=== PATIENT | male | born 1995 | race Two or more races ===

== ENCOUNTER 2021-06-05 09:01 | Emergency (ER) | payer OTHER, SELFPAY ==
[2021-06-05 09:42] VITALS: PULSE 67; RESP 18; TEMP 36.6; O2SAT 100; BMI 24.5
--- NOTE | 2021-06-05 09:45 | ED.ALLEREA ---
HPI - Allergic Reaction General Chief complaint: Allergic Reaction Stated complaint: Rash Allergic Reaction Time Seen by Provider: 06/05/21 09:45 Source: patient Mode of arrival: ambulatory Limitations: no limitations History of Present Illness MD complaint: hives Onset (ago): day(s) (last night) Exposure: food (started after clam pizza) Symptoms: rash and itching Severity: moderate Treatment prior to arrival: other (tried zyrtec) Previous Allergic Reaction History: none Related Data Previous Rx's Medication Instructions Recorded famotidine [Pepcid] 20 mg PO DAILY #10 tab 06/05/21 prednisone 40 mg PO DAILY 4 Days #8 tab 06/05/21 Allergies Allergy/AdvReac Type Severity Reaction Status Date / Time No Known Allergies Allergy Verified 06/05/21 09:45 Review of Systems Review of Systems: Constitutional : No Fever, No Chills ENT/Mouth : no oral swelling, No Hoarseness, No Swallowing Difficulty Eyes: No Eye Pain, No Swelling, No Redness Cardiovascular : No Chest Pain, No SOB Respiratory : No Cough, No Sputum, No Wheezing, No Smoke Exposure, No Dyspnea Gastrointestinal : No Nausea, No Vomiting, No Diarrhea, No abdominal Pain Genitourinary : No Dysuria, No Urinary Frequency, No Hematuria Musculoskeletal : No joint pain, No Myalgias, No Joint Swelling Skin : No Skin Lesions, positive rash Neuro : No Weakness, No Numbness, No Headache Psych : No Anxiety/Panic, No Depression Heme/Lymph: No Bruising, No Lymphadenopathy Endocrine : No Polyuria, No Polydipsia All other systems reviewed and are negative [facility] Past Medical History Medical History Seasonal allergies Social History Social History (Updated 06/05/21 @ 10:05 by Fina Carrera DO) Alcohol intake: never Patient Tobacco Use Status: Never used Tobacco Advance Directives: Yes Advance Directives Information Provided: Yes Advance Directives on File: No Physical Exam Vital Signs: Vital Signs: Last Vital Signs Temp 98 F 06/05/21 09:42 Pulse 67 06/05/21 09:42 Resp 18 06/05/21 09:42 Pulse Ox 100 06/05/21 09:42 Body Mass Index 24.5 Appearance: Alert. Oriented X3. No acute distress. Eyes: Pupils equal, round and reactive to light. ENT: Pharynx normal. Neck: Normal inspection. Neck supple. CVS: Normal heart rate and rhythm. Pulses normal. Respiratory: No respiratory distress. Breath sounds normal. Abdomen: Soft and non-tender. Skin: Skin warm and dry. Normal skin color. Normal skin turgor. hives noted on L trunk, upper chest, scant on back and R forearm - mild Extremities: No lower extremity edema. No calf ttp Neuro: Oriented X 3. No motor deficit. No sensory deficit. MDM - Allergic Reaction MDM Narrative Medical decision making narrative: 25 yo male with exposure to clams which is new has hives but not extensive - no oral swelling, no resp issues, will give oral pepcid/benadryl/steroids - anticipate DC home after improvement with medications Discharge Plan Discharge Clinical Impression: Allergic reaction, Urticaria Patient Disposition: Home, Self-Care Instructions: General Allergic Reaction (ED) Additional Instructions: return to ED for any worsening symptoms or concerns AVOID CLAMS AND OTHER SHELLFISH AT THIS TIME TAKE BENADRYL 25MG EVERY 6 HOURS NEEDED FOR ITCHING START PREDNISONE TOMORROW 06/06/21 Prescriptions: New famotidine [Pepcid] 20 mg tablet 20 mg PO DAILY Qty: 10 RF: 0 prednisone 20 mg tablet 40 mg PO DAILY 4 Days Qty: 8 RF: 0
[2021-06-05] MEDS: predniSONE 20 MG TABLET 60 MG PO (10:26)
[2021-06-05] MEDS: diphenhydrAMINE HCL 25 MG TABLET PO (10:26)
[2021-06-05] MEDS: Famotidine 20 MG TABLET PO (10:26)
== END 2021-06-05 10:43 | disposition home or self-care (01) ==
PROVIDERS: Emergency Provider Emergency Medicine
DX: T78.1XXA Other adverse food reactions, not elsewhere classified, initial encounter (principal); L50.9 Urticaria, unspecified; X58.XXXA Exposure to other specified factors, initial encounter
CPT/HCPCS: 99283; Q0163

== ENCOUNTER 2021-07-04 18:44 | Emergency (ER) | payer OTHER, SELFPAY ==
--- NOTE | ~2021-07-04 | XR_ITS ---
EXAMINATION: XR CHEST CLINICAL INFORMATION: Cough COMPARISON: None TECHNIQUE: Frontal view of the chest was obtained. FINDINGS: The lungs are well expanded. There is no focal consolidation, edema, or effusion. No pneumothorax. The cardiomediastinal silhouette is within normal limits. No acute osseous abnormality. XR/XR chest 1V IMPRESSION: Clear lungs
[2021-07-04 19:01] VITALS: BP 104/48; PULSE 81; RESP 16; TEMP 37.1; O2SAT 100; BMI 23.4
[2021-07-04 19:39] LABS: COVID-19 Test Negative (Negative)
--- NOTE | 2021-07-04 20:14 | ED.URI ---
HPI - URI/Sore Throat General Chief Complaint: Upper Respiratory Symptoms Stated Complaint: Sinus issue Time Seen by Provider: 07/04/21 20:05 Source: patient Mode of arrival: ambulatory Limitations: no limitations History of Present Illness HPI Narrative: Patient is a 26-year-old male no significant past medical history who is here complaining of 4 days of runny nose, sinus pain, blocked ears and a productive cough with yellow phlegm. He denies fever, shortness of breath, difficulty breathing, chest pain, headaches. States he has both COVID vaccinations back in May 2020, [employer]. He states he has been eating and drinking normally. Related Data Previous Rx's Medication Instructions Recorded famotidine 20 mg tablet (Pepcid) 20 mg PO DAILY #10 tab 06/05/21 prednisone 20 mg tablet 40 mg PO DAILY 4 Days #8 tab 06/05/21 Allergies Allergy/AdvReac Type Severity Reaction Status Date / Time No Known Allergies Allergy Verified 06/05/21 09:45 Review of Systems Review of Systems: Yes all other systems are reviewed and are negative PMFSH Past Medical History Medical History Seasonal allergies Social History Social History Alcohol intake: never Patient Tobacco Use Status: Never used Tobacco Advance Directives: No Physical Exam Vital Signs: Vital Signs: Last Vital Signs Temp 98.8 F 07/04/21 19:01 Pulse 81 07/04/21 19:01 Resp 16 07/04/21 19:01 BP 104/48 L 07/04/21 19:01 Pulse Ox 100 07/04/21 19:01 Body Mass Index 23.4 Const: General: cooperative Orientation/consciousness: patient oriented x3 Limitations: no limitations HENMT: Head: Yes normal to inspection Ears: hearing grossly normal bilaterally, external ears normal, TM's normal bilaterally and Abnormal EAC present excessive cerumen on the left Eyes: General: appearance normal, both eyes and all related structures Neck: Neck: Yes normal visual inspection and Yes full ROM Resp: Effort & Inspection: normal respiratory effort and able to speak in complete sentences Auscultation: clear to auscultation bilaterally Cardio: Rate: regular rate Rhythm: regular rhythm Heart sounds: normal S1 and S2 GI: Inspection: Yes normal to inspection Skin: General skin exam: no rashes or lesions noted Neuro: General: patient oriented x3 Extrem: General: Yes normal to inspection MDM - URI/Sore Throat Lab Data Attestation: I reviewed the patient's lab results. Labs: Lab Results 07/04/21 Range/Units 19:07 COVID-19 (ANDREW) Negative (Negative) COVID-19 Clin Com See Note Imaging Data Chest x-ray: Attestation: I personally reviewed and interpreted this imaging study as follows: Radiologist's impression: [address] [address] XRay Report Signed Patient: Moses Kelley MR#: [id number] : 1995 Acct:[id number] Age/Sex: 26 / M ADM Date: 07/04/21 Loc: .ED Attending Dr: Ordering Physician: Generic ED Physician Date of Service: 07/04/21 Procedure(s): XR chest 1V Accession Number(s): [id number] cc: Generic ED Physician~ EXAMINATION: XR CHEST CLINICAL INFORMATION: Cough COMPARISON: None TECHNIQUE: Frontal view of the chest was obtained. FINDINGS: The lungs are well expanded. There is no focal consolidation, edema, or effusion. No pneumothorax. The cardiomediastinal silhouette is within normal limits. No acute osseous abnormality. XR/XR chest 1V IMPRESSION: Clear lungs ? Dictated By: Jason Rodriguez MD Signed By: <Electronically signed by Jason Rodriguez MD in OV> 07/04/211920 DD/ 12 TD/TT:? [employer] [employer]: Discharge Plan Discharge Clinical Impression: Sinusitis, acute Qualifiers: Sinusitis location: frontal Recurrence: non-recurrent Qualified Code(s): J01.10 - Acute frontal sinusitis, unspecified Patient Disposition: Home, Self-Care Instructions: Sinusitis (ED) Additional Instructions: As discussed, you may use a Neti pot to flush out your sinuses, after this, you may use Flonase, 1 spray in each nostril. If you do this before bed, it will make it easier for you to breathe during the night. You also should treat your symptoms as they occur, Tylenol for fever and acetaminophen for pain. If you have chest pain or shortness of breath or difficulty breathing, please return to the emergency department or call 911. Prescriptions: No Action famotidine [Pepcid] 20 mg tablet 20 mg PO DAILY Qty: 10 RF: 0 prednisone 20 mg tablet 40 mg PO DAILY 4 Days Qty: 8 RF: 0
== END 2021-07-04 20:18 | disposition home or self-care (01) ==
PROVIDERS: Emergency Provider Emergency Medicine Emergency Medical Services
DX: J01.10 Acute frontal sinusitis, unspecified (principal); Z20.822 Contact with and (suspected) exposure to COVID-19
CPT/HCPCS: 36415; 71045; 87635; 99283

== ENCOUNTER 2023-05-21 20:19 | Emergency (ER) | payer OTHER, SELFPAY ==
--- NOTE | ~2023-05-21 | CT_ITS ---
EXAMINATION: CT HEAD WITHOUT CONTRAST CLINICAL INFORMATION: Left-sided head pain COMPARISON: None available. TECHNIQUE: Contiguous axial imaging was performed from the skull base to vertex without intravenous administration of contrast. This CT examination was performed using dose optimization techniques as appropriate, variously including the following: *Automated exposure control *Adjustment of mA and/or kV according to patient size (this includes techniques or standardized protocols for targeted exams where dose is matched to indication/reason for exam; i.e. extremities or head) *Use of iterative reconstruction technique DLP: 589 mGy-cm FINDINGS: There is no acute intra-axial, extra-axial bleed, masses or midline shift. No acute infarction in evolution. There is no edema. The raymond to white matter differentiation is maintained normal. The lateral ventricles are symmetrical in size and configuration without enlargement. Bone windows reveal no calvarial abnormality. There is no scalp soft tissue abnormality. Bilateral mastoid sinuses and paranasal sinuses are well-aerated. CT/CT head/brain wo IV con IMPRESSION: No acute intracranial process seen.
--- NOTE | 2023-05-21 20:38 | ED.SKABFB ---
HPI - Skin/Abscess/Foreign Bdy General Chief complaint: Skin/Abscess/Foreign Body Stated complaint: cyst on the back of head Time Seen by Provider: 05/21/23 21:35 History of Present Illness HPI narrative: 27 yo male presents to the ER with left sided pain on the back of his head. He states that it comes and goes and is triggered by stress. He reports that he felt pain after he went to the gym. He states that he feels a lump and states that the pain is undescribable. Location: head Severity: mild Pain Consistency: intermittent Relieving factors: none Exacerbating factors: none Context: none Associated symptoms: denies other symptoms Treatments prior to arrival: none Related Data Previous Rx's Medication Instructions Recorded famotidine 20 mg tablet (Pepcid) 20 mg PO DAILY #10 tabs 06/05/21 prednisone 20 mg tablet 40 mg PO DAILY 4 days #8 tabs 06/05/21 Allergies Allergy/AdvReac Type Severity Reaction Status Date / Time No Known Allergies Allergy Verified 05/21/23 20:45 Review of Systems Review of Systems: Yes all other systems are reviewed and are negative [facility] Past Medical History Medical History Seasonal allergies Social History Social History Alcohol intake: never Patient Tobacco Use Status: Never used Tobacco Advance Directives: No Advance Directives Information Provided: Yes Physical Exam Vital Signs: Vital Signs: Last Vital Signs Temp 98.4 F 05/21/23 20:39 Pulse 62 05/21/23 22:14 Resp 18 05/21/23 22:14 BP 108/66 05/21/23 22:14 Pulse Ox 99 05/21/23 22:14 O2 Del Method Room Air 05/21/23 22:14 BMI result Body Mass Index 24.9 Appearance: Alert. Oriented X3. No acute distress. Head: normocephalic, atraumatic. Eyes: Pupils equal, round and reactive to light. ENT: Pharynx normal. No tonsillar swelling or exudate. Neck: Normal inspection. Neck supple. CVS: Normal heart rate and rhythm. Pulses normal. Respiratory: No respiratory distress. Breath sounds normal. Abdomen: Soft and nontender. +BS x4 Skin: Skin warm and dry. Normal skin color. Normal skin turgor. No rashes. Extremities: No lower extremity edema. No joint swelling. Neuro/psych: Oriented X 3. No motor deficit. No sensory deficit. CN II-XII intact. Normal speech and cognition. Course Course Course Narrative: RME: 27yo M w/no sig PMHx c/o intermittent L posterior scalp pain x 3 years worsening x 2 days. Denies pain at present, however states went to the gym today and then developed pain. States pain worse w/brushing hair. Admits to assoc blurry vision w/ pain. denies N/V, fever No focal deficits, small scalp ?cyst noted, no induration/erythema or fluctuance. no step off Labs including ESR/CRP ordered Full HPI, ROS and PE to be performed by primary ED provider. Medical Decision Making Medical Decision Making [facility] Narrative: 27 yo male presents to the ER with left sided pain on the back of his head. He states that it comes and goes and is triggered by stress. Physical exam was unremarkable with no abnormalities, lesions, or lump on the left back of the skull. Labs are normal. CT of the head was ordered. Differential Diagnosis Differential Diagnoses: The differential diagnosis associated with the presentation includes migraine headache, cluster headache, anxiety reaction, tension headache, doubt aneurysm or SAH given chronicity Lab Data [facility] Lab Attestation statement: I reviewed the patient's lab results. mild anemia, otherwise unremarkable. 05/21/23 20:59 05/21/23 20:59 Labs: Lab Results 05/21/23 05/21/23 05/21/23 Range/Units 20:59 20:59 20:59 WBC 4.8 (4.8-10.8) X10*3/uL RBC 4.22 L (4.60-5.80) X10*6/uL Hgb 13.1 L (14.0-18.0) g/dl Hct 37.3 L (42.0-52.0) % MCV 88.4 (80.0-98.0) fL MCH 31.0 (27.0-33.0) pg MCHC 35.1 (31.0-36.0) g/dl RDW 12.3 (11.0-16.0) % Plt Count 171 (160-400) X10*3/uL MPV 12.1 (9.4-12.4) fL Immature Gran % (Auto) 0.2 (0.0-0.4) % Neut % (Auto) 46.4 (45-73) % Lymph % (Auto) 37.8 (20-40) % [place] % (Auto) 12.0 H (2-11) % Eos % (Auto) 2.5 (0-4) % Baso % (Auto) 1.1 (0-2) % Lymph # (Auto) 1.8 (1.2-4.9) X10*3/uL [place] # (Auto) 0.6 (0.1-1.2) X10*3/uL Eos # (Auto) 0.1 (0.0-0.4) X10*3/uL Baso # (Auto) 0.1 (0.0-0.2) X10*3/uL Abs Immat Gran (auto) 0.01 (0.00-0.03) X10*3/uL Absolute Neuts (auto) 2.2 (2.0-8.3) x10*3/uL Absolute Nucleated RBC 0.000 (0.0-0.012) X10*3/uL Nucleated RBC % (auto) 0.0 (0.0-0.2) /100WBC ESR 7 (0-15) MM/HR Sodium 140 (135-145) mmol/L Potassium 3.8 (3.3-5.1) mmol/L Chloride 105 (96-108) mmol/L Carbon Dioxide 26 (22-29) mmol/L Anion Gap 13 (12-20) BUN 21 H (9-16) mg/dL Creatinine 1.07 (0.5-1.4) mg/dL Estim Creat Clear Calc 95.2 Estimated GFR > 60 Random Glucose 85 (60-115) mg/dL Calcium 9.8 (8.4-10.2) mg/dL Total Bilirubin 0.5 (0.0-1.0) mg/dL Direct Bilirubin 0.2 (0.0-0.5) mg/dL AST 29 (5-37) U/L ALT 20 (0-40) U/L Alkaline Phosphatase 49 (39-117) U/L C-Reactive Protein 0.23 (< or = 0.50) mg/dL Total Protein 7.3 (6.5-8.0) g/dL Albumin 4.4 (3.5-5.0) g/dL Independent Interpretation I performed an independent interpretation of an: CT Scan Interpretation: ct reviewed- no acute edema or bleed, agree w/ radiology read Radiology Impression Discussion of test interpretation with radiology: I have reviewed the radiologist's reading. Radiologist Impression: CT/CT head/brain wo IV con IMPRESSION: No acute intracranial process seen.? External Record Review External record reviewed: Outpatient record and Prior outpatient labs Prescription Management I considered prescription management with: Pain Medication Critical Care Time Critical Care Time Critical Care Time: No Discharge Plan Discharge Clinical Impression: Chronic head pain Patient Disposition: Home, Self-Care Instructions: General Headache (ED) Additional Instructions: Your vital signs, lab workup were normal. CT scan was normal. Recommend following up with your primary care doctor and Neurology for further evaluation. Prescriptions: No Action famotidine [Pepcid] 20 mg tablet 20 mg PO DAILY Qty: 10 0RF prednisone 20 mg tablet 40 mg PO DAILY 4 Days Qty: 8 0RF Referrals: [facility] [place] Neuro/Sleep [Provider Group]
[2023-05-21 20:39] VITALS: BP 115/48; PULSE 77; RESP 18; TEMP 36.9; O2SAT 100; BMI 24.9
[2023-05-21 21:07] LABS: MANUAL DIFF FLAG NO
[2023-05-21 21:09] LABS: Basophils Absolute Auto 0.1 X10*3/uL (0.0-0.2); Basophils Percent Auto 1.1 % (0-2); Eosinophils Absolute Auto 0.1 X10*3/uL (0.0-0.4); Eosinophils Percent Auto 2.5 % (0-4); Hematocrit 37.3 % (42.0-52.0); Hemoglobin 13.1 g/dl (14.0-18.0); Imm Gran Abs Auto 0.01 X10*3/uL (0.00-0.03); Imm Gran Pct Auto 0.2 % (0.0-0.4); Lymphocytes Absolute Auto 1.8 X10*3/uL (1.2-4.9); Lymphocytes Percent Auto 37.8 % (20-40); Mean Corpuscular HGB Conc 35.1 g/dl (31.0-36.0); Mean Corpuscular Volume 88.4 fL (80.0-98.0); Mean Platelet Volume 12.1 fL (9.4-12.4); Monocytes Absolute Auto 0.6 X10*3/uL (0.1-1.2); Neutrophils Absolute Auto 2.2 x10*3/uL (2.0-8.3); Neutrophils Percent Auto 46.4 % (45-73); Platelet Count 171 X10*3/uL (160-400); Red Blood Count 4.22 X10*6/uL (4.60-5.80); Red Cell Distribution Width 12.3 % (11.0-16.0); White Blood Count 4.8 X10*3/uL (4.8-10.8)
[2023-05-21 21:25] LABS: Alanine Aminotransferase 20 U/L (0-40); Albumin Level 4.4 g/dL (3.5-5.0); Alkaline Phosphatase 49 U/L (39-117); Anion Gap 13 (12-20); Aspartate Amino Transferase 29 U/L (5-37); Bilirubin Direct 0.2 mg/dL (0.0-0.5); Bilirubin Total 0.5 mg/dL (0.0-1.0); Blood Urea Nitrogen 21 mg/dL (9-16); C Reactive Protein 0.23 mg/dL (< or = 0.50); Calcium 9.8 mg/dL (8.4-10.2); Carbon Dioxide 26 mmol/L (22-29); Chloride 105 mmol/L (96-108); Creatinine Clr Calc Pharmacy 95.2; Estimated Glomerular Filt Rate > 60; Glucose Random 85 mg/dL (60-115); Potassium 3.8 mmol/L (3.3-5.1); Sodium 140 mmol/L (135-145); Total Protein 7.3 g/dL (6.5-8.0)
[2023-05-21 21:53] LABS: Erythrocyte Sedimentation Rate 7 MM/HR (0-15)
[2023-05-21 22:14] VITALS: BP 108/66; PULSE 62; RESP 18; O2SAT 99
--- NOTE | 2023-05-21 22:52 | PC.NURSE ---
PT RESTING QUIETLY, AWATING CT RESULTS, CALL BARAJAS WITHIN REACH
== END 2023-05-21 23:38 | disposition home or self-care (01) ==
PROVIDERS: Physician Assistant; Emergency Provider Internal Medicine
DX: G89.29 Other chronic pain (principal); R51.9 Headache, unspecified; R22.0 Localized swelling, mass and lump, head
CPT/HCPCS: 36415; 70450; 80048; 80076; 85025; 85652; 86140; 99283; 99284